=== PATIENT | female | born 1990 | race Caucasian/White ===

== ENCOUNTER 2020-08-16 16:20 | Observation (INO) | payer OTHER ==
[2020-08-16] VITALS (11 sets, daily range): BP systolic 119–150; BP diastolic 69–83
[~2020-08-16] VITALS: Ht 165.1 cm; Wt 73.0 kg
--- NOTE | 2020-08-16 16:34 | NUR ---
POISON CONTROL POISON CONTROL CALLED FOR METH OVERDOSE. ADVISED TO MONITOR VITALS, GIVE BENZOS NEEDED TO CALM PATIENT, DRAW OVERDOSE LAB WORK, AND MONITOR FOR TACHYCARDIA. DR. MCCARTHY NOTIFIED. VERBALIZED UNDERSTANDING.
[2020-08-16] MEDS ORDERED: ATIVAN ONE ×2 (16:36→17:24)
[2020-08-16] MEDS ORDERED: ATIVAN IV STA ×2 (16:36→17:14)
--- NOTE | 2020-08-16 16:39 | PCM.EKG ---
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
[2020-08-16 16:45] LABS: BASOPHIL % 0.5 % (0.0-0.2); EOSINOPHIL % 0.2 % (0.0-5.0); LYMPHOCYTES # 2.13 10^3/uL1 (1.0-4.8); LYMPHOCYTES % 24.1 % (24.0-44.0); MEAN CORP HGB 31.4 pg (26-34); MONOCYTES # 0.8 10^3/uL (0.3-0.8); MONOCYTES % 9.2 % (5.0-12.0); NEUTROPHIL # 5.8 10^3/uL (1.8-7.7); NEUTROPHILS % 65.9 % (41.0-85.0); PLATELET COUNT 286 10^3/uL (150-400); RED CELL DISTRIBUTION WIDTH 12.2 % (11.5-14.5)
[2020-08-16 17:12] LABS: ALANINE AMINOTRANSFERASE(ML) 26 U/L (12-78); ALKALINE PHOSPHATASE 81 U/L (50-136); ASPARTATE AMINO TRANSFERASE 18 U/L (0-35); CARBON DIOXIDE 20.2 mmol/L (20.0-32); GLUCOSE 130 mg/dL (70-110)
--- NOTE | 2020-08-16 17:21 | ER.PDOC ---
General Chief Complaint: Overdose Stated Complaint: DIFFICULTY BREATHING/ METH OVERDOSE TRAVEL OUT OF US: No Time seen by MD: 17:11 Source: patient, EMS Exam Limitations: clinical condition, intoxication History of Present Illness Timing/Duration: 4-6 hours Severity: moderate Modifying Factors: improves with rest Associated Symptoms: shortness of breath Allergies: Coded Allergies: No Known Allergies (Unverified , 08/16/20) Home Meds No Active Prescriptions or Reported Meds Past Medical History Medical History: other Surgical History: no surgical history Social History Alcohol Use: none Drug Use: Meth Reviewed Nursing Reviewed: Vital Signs, Abn. 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, Motor Weakness Skin: Normal Color Lymphatic: No Adenopathy Results/Orders Results/Orders Orders - SAILAJA MCCARTHY MD Cbc With Auto Diff (08/16/20 16:36) Comprehensive Metabolic Panel (08/16/20 16:36) Creatine Kinase (08/16/20 16:36) Creatine Kinase Mb (08/16/20 16:36) Troponin I (08/16/20 16:36) Urinalysis (08/16/20 16:36) Salicylate(Ml) (08/16/20 16:36) Acetaminophen(Ml) (08/16/20 16:36) Alcohol(Ml) (08/16/20 16:36) Hcg Qualitative Serum (08/16/20 16:36) Ekg-Routine (08/16/20 16:36) Drug Scrn Med W Confirmation (08/16/20 16:36) Lorazepam (Ativan) (08/16/20 16:36) Xr Chest 1v (08/16/20 16:42) Lorazepam (Ativan) (08/16/20 17:14) Lorazepam (Ativan) (08/16/20 17:24) 0.9 % Sodium Chloride (Ns 1000ml) (08/16/20 17:25) 0.9 % Sodium Chloride (Ns 1000ml) (08/16/20 17:30) Admit Orders (08/16/20 18:38) Bedrest With Brp (08/16/20 18:38) Scd's While In Bed (08/16/20 18:38) Lorazepam (Ativan) (08/16/20 19:00) Vital Signs Date Time Temp Pulse Resp B/P (MAP) Pulse Ox O2 Delivery O2 Flow Rate FiO2 08/16/20 19:00 106 19 128/69 (88) 96 Room Air 08/16/20 18:45 103 15 130/83 (99) 96 Room Air 08/16/20 18:30 107 18 133/71 (91) 98 Room Air 08/16/20 17:49 98.1 103 18 134/80 (98) 99 Room Air 08/16/20 16:49 98.1 71 16 150/78 (102) 99 Room Air 08/16/20 16:39 98.1 71 16 99 08/16/20 16:39 98.1 71 16 Administered Medications Medications (Trade) Dose Ordered Sig/Nancy Route PRN Reason Start Time Stop Time Status Last Admin Dose Admin Lorazepam (Ativan) 2 mg STAT STAT IV 08/16/20 16:36 08/16/20 16:38 DC 08/16/20 16:51 2 MG Lorazepam (Ativan) 2 mg STAT STAT IV 08/16/20 17:14 08/16/20 17:15 DC 08/16/20 17:30 2 MG Sodium Chloride 1,000 ml @ 0 mls/hr Q0M ONCE IV 08/16/20 17:30 08/16/20 17:31 DC 08/16/20 17:30 1,000 MLS/HR Laboratory Tests Test 08/16/20 16:36 08/16/20 18:20 White Blood Count 8.8 10^3/uL (4.5-11.0) Red Blood Count 4.39 10^6/uL (4.00-5.20) Hemoglobin 13.8 g/dL (12.0-15.0) Hematocrit 39.2 % (36.0-46.0) Mean Corpuscular Volume 89.3 fL (78-100) Mean Corpuscular Hemoglobin 31.4 pg (26-34) Mean Corpuscular Hemoglobin Concent 35.2 g/dL (33-36.5) Red Cell Distribution Width 12.2 % (11.5-14.5) Platelet Count 286 10^3/uL (150-400) Mean Platelet Volume 11.9 fL (7.8-11.0) H Neutrophils (%) (Auto) 65.9 % (41.0-85.0) Lymphocytes (%) (Auto) 24.1 % (24.0-44.0) Monocytes (%) (Auto) 9.2 % (5.0-12.0) Neutrophils # (Auto) 5.8 10^3/uL (1.8-7.7) Lymphocytes # (Auto) 2.13 10^3/uL1 (1.0-4.8) Monocytes # (Auto) 0.8 10^3/uL (0.3-0.8) Absolute Immature Granulocyte (auto 0.01 10^3 u/L (0-2) Absolute Eosinophils (auto) 0.0 10^3/uL (0.0-0.2) Immature Granulocytes % 0.10 % (0.00-0.50) Eosinophils % 0.2 % (0.0-5.0) Basophils % 0.5 % (0.0-0.2) H Basophils # 0.0 10^3/uL (0.0-0.1) Sodium Level 133 mmol/L (132-145) Potassium Level 3.2 mmol/L (3.6-5.2) L Chloride Level 96.0 mmol/L (96-109) Carbon Dioxide Level 20.2 mmol/L (20.0-32) Anion Gap 20.0 Blood Urea Nitrogen 8 mg/dL (7-18) Creatinine 1.10 mg/dL (0.59-1.40) Estimated GFR () 70.1 (>/=60) Est GFR (CKD-EPI)(Non-Afr Indian) 57.9 (>/=60) BUN/Creatinine Ratio 7.0 Glucose Level 130 mg/dL (70-110) H Calcium Level 9.0 mg/dL (8.4-10.5) Total Bilirubin 0.6 mg/dL (0.2-1.0) Aspartate Amino Transferase (AST) 18 U/L (0-35) Alanine Aminotransferase (ALT) 26 U/L (12-78) Alkaline Phosphatase 81 U/L (50-136) Total Creatine Kinase 275 U/L (26-192) H Creatine Kinase MB 1.4 ng/mL (0.5-3.6) Troponin I < 0.02 ng/mL (0.00-0.05) Total Protein 8.8 g/dL (6.4-8.2) H Albumin 4.3 g/dL (3.4-5.0) Globulin 4.5 Albumin/Globulin Ratio 0.955 Serum HCG, Qualitative NEGATIVE (NEGATIVE) Salicylates Level < 2.8 mg/dL (2.8-20.0) L Acetaminophen Level < 2 ug/mL (10-30) L Serum Alcohol < 3 mg/dL (0-50) Urine Collection Type VOID Urine Color YELLOW (YELLOW) Urine Appearance SLIGHTLY CLOUDY (CLEAR) Urine Bilirubin NEGATIVE MG/DL (NEGATIVE) Urine Ketones NEGATIVE (NEGATIVE) Urine Specific [place] 1.005 (1.005-1.035) Urine pH 5.5 (5.0-6.0) Urine Protein NEGATIVE (NEGATIVE) Urine Urobilinogen NEGATIVE (NEGATIVE) Urine Nitrate NEGATIVE (NEGATIVE) Urine Leukocyte Esterase NEGATIVE (NEGATIVE) Urine Blood LARGE (NEGATIVE) Urine RBC 5-10 RBC/HPF (NONE SEEN) H Urine WBC NONE SEEN WBC/HPF (0-2) Urine Squamous Epithelial Cells MODERATE #/HPF (FEW) Urine Renal Epithelial Cells NONE SEEN #/HPF (NONE Urine Bacteria FEW (NONE SEEN) H Urine Other FEW CLUE CELLS #/HPF Urine Glucose NORMAL (NEGATIVE) Urine Opiates Screen NEGATIVE (c/o300ng/mL) Urine Methadone Screen NEGATIVE (c/o300ng/mL) Urine Barbiturates Screen NEGATIVE (c/o200ng/mL) Urine Phencyclidine Screen NEGATIVE (c/o 25ng/mL) Ur Amphetamine/Methamphetamine PRESUMPTIVE POSITIVE Urine MDMA Screen (Ecstasy) PRESUMPTIVE POSITIVE Urine Benzodiazepines Screen PRESUMPTIVE POSITIVE Urine Cocaine Metabolite Screen NEGATIVE (c/o300ng/mL) Ur Tetrahydrocannabinol (THC) Scrn NEGATIVE (c/o 50ng/mL) EKG/XRAY/CT/US EKG Comments: SINUS TACH Consult/PCP Time Consult/PCP Called: 18:21 Consult/PCP: DR ANETTE PIEDRA DEPART Departure Time of Disposition: 18:22 Disposition: 09 ADMITTED INPATIENT Impression: Primary Impression: Substance abuse Condition: Improved Referrals: PCP,UNKNOWN (PCP) PRIMARY CARE PROVIDER Scripts No Active Prescriptions or Reported Meds Duration or Time Spent with Pa: 18 M Return to Work/School Can a patient return to work?: No Can a patient return to school: No SAILAJA MCCARTHY MD Aug 16, 2020 17:21
[2020-08-16] MEDS ORDERED: NS 1000ML 1,000 ML ONE (17:25)
[2020-08-16] MEDS ORDERED: NS 1000ML 1,000 ML IV ONE (17:30)
--- NOTE | 2020-08-16 18:37 | DIREP ---
PROCEDURE:CHEST 1 VIEW COMPARISON:None. INDICATIONS:SHORTNESS OF BREATH FINDINGS: LUNGS/PLEURA:No significant pulmonary parenchymal abnormalities. No effusions. Defibrillator pad projecting over the right shoulder. The lungs are clear. No pneumonia, heart failure or effusions are seen. VASCULATURE:Normal. Unremarkable pulmonary vasculature. CARDIAC:Normal. No cardiac silhouette abnormality or cardiomegaly. MEDIASTINUM:Normal. No visible mass or adenopathy. BONES:Normal. No fracture or visible bony lesion. OTHER:Negative. CONCLUSION:No active disease. Dictated by: Venkat Kelly MD on 08/16/2020 at 05:22 PM
[2020-08-16 18:59] LABS: APPEARANCE,URINE SLIGHTLY CLOUDY (CLEAR); BILIRUBIN,URINE NEGATIVE (NEGATIVE); UA COLOR YELLOW (YELLOW)
[2020-08-16 19:00] LABS: UROBILINOGEN,URINE NEGATIVE (NEGATIVE)
[2020-08-16] MEDS ORDERED: ATIVAN IV PRN ×2 (19:00→20:00)
--- NOTE | 2020-08-16 19:42 | NUR ---
REPORT GIVEN TO TYREE MCQUEEN AT THIS TIME.
--- NOTE | 2020-08-16 19:45 | NUR ---
MED SURG PT TAKEN TO [facility] VIA STRETCHER BY CELINA Joyce RN AT THIS TIME.
--- NOTE | 2020-08-16 19:50 | PCM.HP ---
History of Present Illness Hx of Present Illness 30-year-old female brought to the ER for meth overdose patient had tachycardia was given Ativan in ER. Patient's tachycardia went down to 100. Patient improved. History unable to ascertain due to patient unwilling to cooperate and answer questions. Past medical history: Meth use otherwise healthy Surgical history: Noncontributory Family history noncontributory Social history: Patient has had illicit drug use of meth Social alcohol user Denies any drug allergies Review of Systems Constitutional: No: Fever, Chills Eyes: No: Pain, Vision change ENT: No: Ear pain, Ear discharge Respiratory: No: Cough, Dry Cardiovascular: Palpitations; No: Chest Pain Gastrointestinal: No: Nausea, Vomiting Genitourinary: No Dysuria, No Frequency Skin: No: Rash, Lesions Neurological: No: Weakness, Numbness Allergies: Coded Allergies: No Known Allergies (Unverified , 08/16/20) VTE VTE Risk Score VTE Risk: Score 0-1 = Low Risk (Aggressive mobilization; early ambulation; no VTE prophylaxis required) Score 2: Moderate Risk (Intermittent/Pneumatic Compression Device OR Lovenox/Heparin/Coumadin) Score 3-4: High Risk (Intermittent/Pneumatic Compression Device AND Lovenox/Heparin/Coumadin) Score > or =5: Highest Risk (Intermittent/Pneumatic Compression Device AND Lovenox/Heparin/Coumadin) Exam Vital Signs Vital Signs Date Time Temp Pulse Resp B/P (MAP) Pulse Ox O2 Delivery O2 Flow Rate FiO2 08/16/20 19:30 102 17 124/70 (88) 97 Room Air 08/16/20 17:49 98.1 General Appearance: Alert, Oriented X3, No acute distress HEENT: Atraumatic, PERRLA, EOMI Respiratory: Clear to auscultation, Normal air movement Cardiovascular: Regular rate, Normal S1, Normal S2, No murmurs Abdominal: Normal bowel sounds, Soft Extremities: No clubbing, No cyanosis, No edema Skin: No rash, No breakdown, No lesions Neuro: Normal gait, Normal speech, Strength at 5/5 X4 ext Psych/Mental Status: Mental status NL, Mood NL Assessment/Plan Assessment/Plan Assessment/Plan 30-year-old female otherwise healthy who presents with tachycardia palpitations with meth overdose. Patient was treated with Ativan in ER patient improved and stable. Patient admitted for meth overdose with palpations. Ativan as needed We will monitor patient's heart rate on telemetry Recommend patient abstain from meth use If patient improves will plan to discharge tomorrow Patient History: Patient reports no known family medical history. ZAKI CHEEMA MD Aug 16, 2020 19:50
--- NOTE | 2020-08-16 19:55 | NUR ---
ARRIVAL TO [facility]IA STRETCHER
--- NOTE | 2020-08-16 20:15 | NUR ---
PT STATUS PT UNABLE TO ANSWER ADMISSION QUESTIONS. REACHED OUT TO EMERGENCY CONTACT LENA TAM, NO ANSWER AT PHONE # ON FILE. WILL CALL LATER IN SHIFT.
--- NOTE | 2020-08-16 20:15 | NUR ---
ADULT ADMISSION PACKET EMERGENCY CONTACT CALLED TO [facility] AT THIS TIME, COMPLETED WITH HELP OF LENA TAM (EMERGENCY CONTACT). [facility] TAM ANSWERED ADMISSION QUESTIONS TO BEST OF HER KNOWLEDGE.
--- NOTE | 2020-08-16 21:00 | NUR ---
PT REFUSED SCD's
[2020-08-17 04:35] VITALS: BP 132/79
[2020-08-17 07:46] VITALS: BP 109/76
[2020-08-17 10:18] LABS: BASOPHIL % 0.7 % (0.0-0.2); EOSINOPHIL # 0.1 10^3/uL (0.0-0.2); EOSINOPHIL % 1.9 % (0.0-5.0); LYMPHOCYTES # 1.67 10^3/uL1 (1.0-4.8); LYMPHOCYTES % 28.6 % (24.0-44.0); MEAN CORP HGB 31.6 pg (26-34); MONOCYTES # 0.5 10^3/uL (0.3-0.8); MONOCYTES % 9.2 % (5.0-12.0); NEUTROPHIL # 3.5 10^3/uL (1.8-7.7); NEUTROPHILS % 59.4 % (41.0-85.0); PLATELET COUNT 253 10^3/uL (150-400); RED CELL DISTRIBUTION WIDTH 12.5 % (11.5-14.5)
[2020-08-17 10:36] LABS: CALCIUM 8.5 mg/dL (8.4-10.5); CARBON DIOXIDE 24.4 mmol/L (20.0-32)
--- NOTE | 2020-08-17 10:47 | PRM.DC ---
REINALDO Summary Impressions/Complications: Review of Systems Constitutional: No: Fever, Chills Eyes: No: Pain, Vision change ENT: No: Ear pain, Ear discharge Respiratory: No: Cough, Dry Cardiovascular: Palpitations; No: Chest Pain Gastrointestinal: No: Nausea, Vomiting Genitourinary: No Dysuria, No Frequency Skin: No: Rash, Lesions Neurological: No: Weakness, Numbness Exam General Appearance: Alert, Oriented X3, No acute distress HEENT: Atraumatic, PERRLA, EOMI Respiratory: Clear to auscultation, Normal air movement Cardiovascular: Regular rate, Normal S1, Normal S2, No murmurs Abdominal: Normal bowel sounds, Soft Extremities: No clubbing, No cyanosis, No edema Skin: No rash, No breakdown, No lesions Neuro: Normal gait, Normal speech, Strength at 5/5 X4 ext Psych/Mental Status: Mental status NL, Mood NL HPI/Course 30-year-old female brought to the ER for meth overdose patient had tachycardia was given Ativan in ER. Patient's tachycardia went down to 100. Patient improved. History unable to ascertain due to patient unwilling to cooperate and answer questions. Past medical history: Meth use otherwise healthy Surgical history: Noncontributory Family history noncontributory Social history: Patient has had illicit drug use of meth Social alcohol user Denies any drug allergies Lab/Dane/BBK/Rad Laboratory Tests Test 08/16/20 16:36 08/16/20 18:20 08/17/20 09:40 White Blood Count 8.8 10^3/uL 5.8 10^3/uL Red Blood Count 4.39 10^6/uL 4.08 10^6/uL Hemoglobin 13.8 g/dL 12.9 g/dL Hematocrit 39.2 % 38.1 % Mean Corpuscular Volume 89.3 fL 93.4 fL Mean Corpuscular Hemoglobin 31.4 pg 31.6 pg Mean Corpuscular Hemoglobin Concent 35.2 g/dL 33.9 g/dL Red Cell Distribution Width 12.2 % 12.5 % Platelet Count 286 10^3/uL 253 10^3/uL Mean Platelet Volume 11.9 fL 11.8 fL Neutrophils (%) (Auto) 65.9 % 59.4 % Lymphocytes (%) (Auto) 24.1 % 28.6 % Monocytes (%) (Auto) 9.2 % 9.2 % Neutrophils # (Auto) 5.8 10^3/uL 3.5 10^3/uL Lymphocytes # (Auto) 2.13 10^3/uL1 1.67 10^3/uL1 Monocytes # (Auto) 0.8 10^3/uL 0.5 10^3/uL Absolute Immature Granulocyte (auto 0.01 10^3 u/L 0.01 10^3 u/L Absolute Eosinophils (auto) 0.0 10^3/uL 0.1 10^3/uL Immature Granulocytes % 0.10 % 0.20 % Eosinophils % 0.2 % 1.9 % Basophils % 0.5 % 0.7 % Basophils # 0.0 10^3/uL 0.0 10^3/uL Sodium Level 133 mmol/L 138 mmol/L Potassium Level 3.2 mmol/L 3.6 mmol/L Chloride Level 96.0 mmol/L 103.0 mmol/L Carbon Dioxide Level 20.2 mmol/L 24.4 mmol/L Anion Gap 20.0 14.2 Blood Urea Nitrogen 8 mg/dL 8 mg/dL Creatinine 1.10 mg/dL 0.90 mg/dL Estimated GFR () 70.1 88.4 Est GFR (CKD-EPI)(Non-Afr German) 57.9 73.0 BUN/Creatinine Ratio 7.0 8.0 Glucose Level 130 mg/dL 132 mg/dL Calcium Level 9.0 mg/dL 8.5 mg/dL Total Bilirubin 0.6 mg/dL 0.8 mg/dL Aspartate Amino Transf (AST/SGOT) 18 U/L 16 U/L Alanine Aminotransferase (ALT/SGPT) 26 U/L 25 U/L Alkaline Phosphatase 81 U/L 74 U/L Total Creatine Kinase 275 U/L Creatine Kinase MB 1.4 ng/mL Troponin I < 0.02 ng/mL Total Protein 8.8 g/dL 7.5 g/dL Albumin 4.3 g/dL 3.6 g/dL Globulin 4.5 3.9 Albumin/Globulin Ratio 0.955 0.923 Serum HCG, Qualitative NEGATIVE Salicylates Level < 2.8 mg/dL Acetaminophen Level < 2 ug/mL Serum Alcohol < 3 mg/dL Urine Collection Type VOID Urine Color YELLOW Urine Appearance SLIGHTLY CLOUDY Urine Bilirubin NEGATIVE MG/DL Urine Ketones NEGATIVE Urine Specific [place] 1.005 Urine pH 5.5 Urine Protein NEGATIVE Urine Urobilinogen NEGATIVE Urine Nitrate NEGATIVE Urine Leukocyte Esterase NEGATIVE Urine Blood LARGE Urine RBC 5-10 RBC/HPF Urine WBC NONE SEEN WBC/HPF Urine Squamous Epithelial Cells MODERATE #/HPF Urine Renal Epithelial Cells NONE SEEN #/HPF Urine Bacteria FEW Urine Other FEW CLUE CELLS #/HPF Urine Glucose NORMAL Urine Opiates Screen NEGATIVE Urine Methadone Screen NEGATIVE Urine Barbiturates Screen NEGATIVE Urine Phencyclidine Screen NEGATIVE Ur Amphetamine/Methamphetamine PRESUMPTIVE POSITIVE Urine MDMA Screen (Ecstasy) PRESUMPTIVE POSITIVE Urine Benzodiazepines Screen PRESUMPTIVE POSITIVE Urine Cocaine Metabolite Screen NEGATIVE Ur Tetrahydrocannabinol (THC) Scrn NEGATIVE Vitals/I&O VS - Last 72 Hours, by Label Date Time Temp Pulse Resp B/P (MAP) Pulse Ox O2 Delivery O2 Flow Rate FiO2 08/17/20 09:44 Room Air 08/17/20 07:46 97.9 86 16 109/76 (87) 98 Room Air 08/17/20 04:35 97.7 87 20 132/79 (96) 94 Room Air 08/17/20 00:03 Room Air 08/16/20 23:29 98.7 99 20 126/74 (91) 100 08/16/20 20:48 Room Air 08/16/20 19:50 98.4 93 18 119/83 (95) 08/16/20 19:45 93 17 137/77 (97) 99 Room Air 08/16/20 19:30 102 17 124/70 (88) 97 Room Air 08/16/20 19:15 110 20 127/70 (89) 96 Room Air 08/16/20 19:00 106 19 128/69 (88) 96 Room Air 08/16/20 18:45 103 15 130/83 (99) 96 Room Air 08/16/20 18:30 107 18 133/71 (91) 98 Room Air 08/16/20 17:49 98.1 103 18 134/80 (98) 99 Room Air 08/16/20 16:49 98.1 71 16 150/78 (102) 99 Room Air 08/16/20 16:39 98.1 71 16 99 08/16/20 16:39 98.1 71 16 Sepsis Reassessment @ DC 08/17/20 08:02 Discharge Plan Patient improved with Ativan given in ER. Patient had no other symptoms or complications following meth overdose. Patient on discharge was feeling well ready to go home. Exam was otherwise normal, vital stable, repeat labs CBC CMP unremarkable. Patient discharged home recommended to abstain from meth use, patient understands and will try. Patient to follow-up with PCP ZAKI CHEEMA MD Aug 17, 2020 10:47
--- NOTE | 2020-08-17 11:00 | NUR ---
DISCHARGE Discharge instructions given to the pt both verbally and written at this time. Educational session over importance of quitting meth use, and complications it can cause for the hear. Pt verbalized understanding. Pt educated to follow up with a primary care provider, and to follow a regular diet at home, as well as continue activity as tolerated. Pt has no questions or concerns at this time. Both peripheral IV's taken out via aseptic technique with both tips intact. Pt tolerated well. Pt walked off of unit at this time accompanied by significant other to private auto, pt shows no s/s of acute distress. Relinquished care at this time.
[2020-08-17 11:05] VITALS: BP 109/76
[2020-08-17] MEDS ORDERED: LOVENOX SQ SCH (21:00)
== END 2020-08-17 11:00 | disposition home or self-care (01) ==
LOC: ER 16:20 → EDBD 16:20 → MS 19:03
PROVIDERS: ADMIT Family Medicine; ATTEND Family Medicine
DX: T43.621A Poisoning by amphetamines, accidental (unintentional), initial encounter (principal); R00.0 Tachycardia, unspecified; R00.2 Palpitations; F15.10 Other stimulant abuse, uncomplicated
CPT/HCPCS: 36415 ×2; 71045; 80053 ×2; 80299 ×2; 80307; 80320; 80324; 80346; 81000; 82550; 82553; 84484; 84703; 85025 ×2; 87086; 93005; 96361; 96374; 96376 ×2; 99285; G0378 ×16; J2060 ×3; J7030

== ENCOUNTER 2020-08-18 22:55 | Emergency (ER) | payer OTHER ==
[~2020-08-18] VITALS: Ht 167.6 cm; Wt 69.4 kg
[2020-08-18 22:55] VITALS: BP 147/83
--- NOTE | 2020-08-18 22:55 | NUR ---
ARRIVAL PT COMPLAINING OF SHORTNESS OF BREATH, AND ANXIETY. PT WAS RECENTLY SEEN ON WEDNESDAY 08/16 FOR OVERDOSE. PER EMS, PT WAS INTUBATED; PT WAS ADMITTED TO HOSPITAL OBSERVATION. PT REPORTING SENSATION OF SWELLING IN THROAT, AND SORE THROAT. PT REPORTS SHE IS PANICKING BECAUSE SHE CAN NOT BREATHING. PT APPEARS TO BE IN NAD WITH RR EVEN, YET INCREASED AT 24BPM WITH A SAO2 OF 100% ON ROOM AIR. PT IS ABLE TO BE CALMED WITH REASSURANCE. PT ABLE TO TRANSPORT HERSELF WITHOUT DIFFICULTY FROM EMS STRETCHER TO ED STRETCHER.
--- NOTE | 2020-08-18 22:55 | NUR ---
ANXIETY/RELAXATION MEASURED RELAXATION MEASURES IMPLEMENTED LIGHTS DIMMED IN ROOM. PT EDUCATED ON EFFECTIVE BREATHING MEASURES. REASSURANCE PROVIDED TO PATIENT. PT INFORMED THAT HER OXYGENATION IS 100% ON ROOM AIR. RELAXATION MEASURES EFFECTIVE, PT REPORTING IMPROVEMENT IN PANIC/ANXIETY. PT IN NAD WITH RR EVEN AND UNLABORED WITH A RATE AT 18.
[2020-08-18] MEDS ORDERED: DECADRON IV STA (23:15)
[2020-08-18] MEDS ORDERED: DECADRON ONE (23:15)
[2020-08-18 23:20] VITALS: BP 142/78
--- NOTE | 2020-08-18 23:20 | NUR ---
REASSESSMENT PT APPEARS CALM AT THIS TIME. STEADY BREATHING. PT NOTED TO OCCASIONALLY CLEAR THROAT, BUT REPORTS THAT SHE IS ABLE TO SWALLOW SALIVA FINE. PT IN NAD WITH RR EVEN AND UNLABORED.
--- NOTE | 2020-08-18 23:22 | ER.PDOC ---
General Chief Complaint: Requesting Medical Care Stated Complaint: DIFFICULTY BREATHING TRAVEL OUT OF US: No Time seen by MD: 22:50 Source: patient Exam Limitations: no limitations History of Present Illness Initial Comments Dr. Sagastume dictating this 30-year-old black female comes in with a complaint of difficulty breathing. Paramedics picked her up and indicated that she appeared to just be having a panic attack. She was in here on WednesdayWhich was the 12th when she had overdosed on drugs. She ended up being intubated and apparently was a somewhat traumatic intubation. She now complains of just a really sore throat and feels like it swollen. I did indicate that it could certainly be swollen but her oxygenation is perfect and is not her lungs its her vocal cords since well from the intubation. Patient saturations on the truck were 99% her saturation here is 100% patient denies being sick in any other way. Severity: moderate Associated Symptoms: denies symptoms Allergies: Coded Allergies: No Known Allergies (Unverified , 08/16/20) Home Meds No Active Prescriptions or Reported Meds Past Medical History Medical History: other (Drug and tobacco abuse no other medical history) Surgical History: no surgical history Social History Smoking: cigarettes, greater than 1 pack/day Alcohol Use: rarely Drug Use: Meth Review of Systems Respiratory: cough, other (Sore throat) All Other Systems: Reviewed and Negative Physical Exam General Appearance: No Apparent Distress, WD/WN EENT: eyes nml inspection, nml ENT inspection, pharynx nml Neck: Non-Tender, Full Range of Motion, Supple Respiratory: chest non-tender, lungs clear, normal breath sounds, no respiratory distress CVS: reg rate & rhythm, no murmur, no gallop, pulses nml Gastrointestinal: Normal Bowel Sounds, No Organomegaly, No Pulsatile Mass, Non Tender Extremities: Normal Range of Motion, Non-Tender, Normal Inspection, No Pedal Edema 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, No Motor/Sensory Deficits, Alert, Normal Mood/Affect, Oriented x 3 Skin: Normal Color, Warm/Dry Lymphatic: No Adenopathy Results/Orders Results/Orders Orders - LISETTE SAGASTUME MD Dexamethasone Sodium Phosphate (Decadron (08/18/20 23:15) Dexamethasone Sodium Phosphate (Decadron (08/18/20 23:15) ER DEPART Departure Time of Disposition: 23:21 Disposition: 01 HOME, SELF-CARE Impression: Primary Impression: Laryngeal edema Condition: Stable Referrals: PCP,UNKNOWN (PCP) PRIMARY CARE PROVIDER Scripts No Active Prescriptions or Reported Meds Duration or Time Spent with Pa: 10m LISETTE SAGASTUME MD Aug 18, 2020 23:22
[2020-08-18 23:56] VITALS: BP 143/82
== END 2020-08-18 23:56 | disposition home or self-care (01) ==
LOC: EDBD 22:55 → ER 22:55
DX: J38.4 Edema of larynx (principal); F41.0 Panic disorder [episodic paroxysmal anxiety]; F17.210 Nicotine dependence, cigarettes, uncomplicated
CPT/HCPCS: 96374; 99283; J1100

== ENCOUNTER 2021-05-02 17:25 | Emergency (ER) | payer OTHER ==
[~2021-05-02] VITALS: Ht 167.6 cm; Wt 59.0 kg
[2021-05-02 17:36] VITALS: BP 146/86
--- NOTE | 2021-05-02 17:41 | NUR ---
ARRIVAL PATIENT ARRIVED TO ED5 AMBULATORY, C/O DENTAL PAIN FOR THE PAST 2 1/2 WEEKS, DID TAKE TYLENOL TODAY WITH MINIMAL RELIEF, CAME TO THE ED FOR EVAL DOCTOR FRANKLIN TO THE ROOM TO SEE PATIENT.
[2021-05-02] MEDS ORDERED: TORADOL ONE (17:47)
[2021-05-02] MEDS: TORADOL IM STA (17:50)
[2021-05-02 17:51] VITALS: BP 148/62
--- NOTE | 2021-05-02 17:53 | ER.PDOC ---
General Chief Complaint: Toothache Stated Complaint: TOOTHACHE Time seen by MD: 17:49 Source: patient Exam Limitations: no limitations History of Present Illness Initial Comments Tooth ache for 2-1/2 weeks. No fever or chills. Timing/Duration: gradual Associated Symptoms: toothache Severity: moderate Allergies: Coded Allergies: No Known Allergies (Unverified , 08/16/20) Home Meds No Active Prescriptions or Reported Meds Past Medical History Medical History: no pertinent history Surgical History: no surgical history Family History Significant Family History: no pertinent family hx Social History Alcohol Use: occassionally Drug Use: marijuana, Meth Constitutional: no symptoms reported Mouth: see HPI Respiratory: no symptoms reported Cardiovascular: no symptoms reported Gastrointestinal: no symptoms reported Musculoskeletal: no symptoms reported All Other Systems: Reviewed and Negative Physical Exam General Appearance: alert, no distress Head/Neck: head nml inspection, neck nml inspection, trachea midline, no lymphadenopathy, thyroid nml Mouth: lips, gums nml, no drooling, no thrush, membranes nml, dental tenderness (Left lower premolar) Throat: pharynx nml, voice nml, no airway problems Respiratory: no resp. distress, lungs clear CVS: reg. rate & rhythm, heart sounds nml Abdomen: non-tender, no organomegaly Extremities: non-tender, ROM nml Skin Exam: Normal Color, Warm/Dry NEURO/PSYCH: oriented X3, mood/effect nml Results/Orders Results/Orders Vital Signs Date Time Temp Pulse Resp B/P (MAP) Pulse Ox O2 Delivery O2 Flow Rate FiO2 05/02/21 17:36 98.5 78 18 146/86 (106) 100 Room Air 05/02/21 17:36 98.5 78 18 05/02/21 17:36 98.5 78 18 100 Progress Progress Pain improved with Toradol shot. ER DEPART Departure Time of Disposition: 17:51 Disposition: 01 HOME / SELF CARE / HOMELESS Impression: Primary Impression: Dental infection Additional Impression: Pain, dental Condition: Improved Referrals: PCP,UNKNOWN (PCP) PRIMARY CARE PROVIDER Additional Instructions: Amoxil Diclofenac F/U with your Dentist next week Return to ED if worsening or concerns Scripts No Active Prescriptions or Reported Meds Duration or Time Spent with Pa: 10 min GLYNN REID MD May 02, 2021 17:53
== END 2021-05-02 18:00 | disposition home or self-care (01) ==
LOC: ER 17:25
DX: K04.7 Periapical abscess without sinus (principal); F12.90 Cannabis use, unspecified, uncomplicated
CPT/HCPCS: 96372; 99283; J1885